=== PATIENT | male | born 1970 | race Caucasian/White ===

== ENCOUNTER 2025-07-23 15:01 | Emergency (ER) | payer BC, SELFPAY ==
--- NOTE | ~2025-07-23 | XR_ITS ---
EXAMINATION: XR chest 2V, 07/23/2025 15:15 CDT HISTORY: rib cage pain s/p fall COMPARISON: No comparisons available. Technique: 2 views obtained. Findings: The lungs are clear, no effusion. No pneumothorax. Heart is normal size. Mediastinal and hilar contours are within normal limits. Bony thorax no acute abnormality. Impression: No acute cardiopulmonary abnormality. Reviewed, dictated and finalized at location P. Impression: No acute cardiopulmonary abnormality.
[2025-07-23 15:05] VITALS: BP 160/113; PULSE 80; RESP 16; TEMP 36.8; O2SAT 98
--- OUTSIDE RECORDS SUMMARY | 2025-07-23 15:06 | XMS_ITS | Encounter Summary ---
Author Organization [facility] Address [address] [place] [address] Care Team Providers Care Ultrasound Specialist Name Role Phone Tony Stratton KARLA Unavailable [phone] Dinorah Hernandez RN Unavailable [phone] Encounter Details Date Type Department Care Team (Late st Contact Info) Description 08/11/2022 Telephone [facility] [address] [place] [phone] Deysi Black, [facility] [place] Social History Tobacco Use Types Packs/Day Years Used Date Smoking Tobacco: Never Assessed AUDIT-C Answer Date Recorded Q1: How often do you have a drink containing alc ohol? Never 08/10/2022 Q2: How many drinks containi ng alcohol do you have on a typical day when you are drinking? Patient declined 08/10/2022 Q3: How often do you have si x or more drinks on one occasion? Patient declined 08/10/2022 Sex and Gender Information Value Date Recorded Sex Assigned at Not on file Legal Sex Male 8:58 AM CDT Gender Identity Not on file Sexual Orientation Not on file documented as of this encounter Functional Status * Is person deaf or have serious hearing difficulty? Answer Date of Assessment Author No 08/10/2022 3:20 PM CDT Anatoly Peters RN * Is person blind or have serious difficulty seeing? Answer Date of Assessment Author No 08/10/2022 3:20 PM CDT Anatoly Peters RN * Does person have serious difficulty walking/climbing stairs? Answer Date of Assessment Author No 08/10/2022 3:20 PM CDT Anatoly Peters RN * Does person have difficulty dressing/bathing? Answer Date of Assessment Author No 08/10/2022 3:20 PM CDT Anatoly Peters RN * Does person have difficulty doing errands alone? Answer Date of Assessment Author No 08/10/2022 3:20 PM CDT Anatoly Peters RN documented as of this encounter Mental Status * Does person have difficulty concentrating/remembering/making decisions? Answer Entry Date Author No 08/10/2022 3:20 PM CDT Anatoly Peters RN documented in this encounter Plan of Treatment Not on file documented as of this encounter Visit Diagnoses Not on filedocumented in this encounter Care Teams Ultrasound Specialist Relationship Specialty Start Date End Date Tony Stratton APRN-CLINICAL HAEMATOLOGIST [address] [place] [phone] PCP - Attributed-[employer] Medicaid [place] 08/24/20 06/21/24 Dinorah Hernandez RN Icing CoaterFuse Spooler 09/02/22 09/02/22 documented as of this encounter
--- OUTSIDE RECORDS SUMMARY | 2025-07-23 15:06 | XMS_ITS | Clinical Summary ---
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 Sex and Gender Information Value Date Recorded Sex Assigned at Not on file Legal Sex Male 2:36 AM TELEPHONE SOLICITOR Gender Identity Not on file Sexual Orientation Not on file Last Filed Vital Signs Vital Sign Reading Time Taken Comments Blood Pressure 127/77 12/02/2020 5:45 AM TELEPHONE SOLICITOR Pulse 66 12/02/2020 5:45 AM TELEPHONE SOLICITOR Temperature 36.6 C (97.9 F) 12/02/2020 2:41 AM TELEPHONE SOLICITOR Respiratory Rate 17 12/02/2020 5:45 AM TELEPHONE SOLICITOR Oxygen Saturation 100% 12/02/2020 5:45 AM TELEPHONE SOLICITOR Inhaled Oxygen Concentration - - Weight 72.6 kg (160 lb) 12/02/2020 2:41 AM TELEPHONE SOLICITOR Height 177.8 cm (5' 10) 12/02/2020 2:41 AM TELEPHONE SOLICITOR Body Mass Index 22.96 12/02/2020 2:41 AM TELEPHONE SOLICITOR Plan of Treatment Health Maintenance Due Date Last Done Comments Hepatitis C Virus (HCV) Screening 1968 Hepatitis B Immunization (1 of 3 - 19+ 3-dose series) 1987 Cologuard 2013 Colonoscopy 2013 Colorectal Cancer Screening 2013 Immunochemical Fecal Occult Blood 2013 Pneumococcal Immunization (5 0+ years) (1 of 1 - PCV) 2018 Zoster Immunization (1 of 2) 2018 Influenza Immunization (#1) 2025 SARS-COV-2 Immunization ( season) 2025 10/20/2021, 03/20/2021, 02/21/2021 Respiratory Syncytial Virus (RSV) Immunization (Adult) (1 - 1-dose 75+ series) 2043 DTaP/Tdap/Td Immunization Discontinued 10/24/2014 TdaP Immunization Completed 10/24/2014 Human Papillomavirus (HPV) Immunization Aged Out No longer eligible based on patient's age to complete this topic Meningococcal Immunization (ACWY) Aged Out No longer eligible based on patient's age to complete this topic Rotavirus Immunization Aged Out No lo nger eligible based on patient's age to complete this topic Insurance MEDICAID [place] Care Teams Library Clerical Assistant Relationship Specialty Start Date End Date Provider, None [place] PCP - General 12/02/20
--- OUTSIDE RECORDS SUMMARY | 2025-07-23 15:06 | XMS_ITS | Clinical Summary ---
Author Organization [facility] Address [address] [place] [address] Care Team Providers Care Skiving Machine Operator Name Role Phone Unavailable Primary Care Provider Unavailabl e Source Comments [facility],non-owned Affiliates and Associated Physician Practices is amultiple site organization consisting of ambulatory clinics and hospital sitesin [place], [place] and [place]. This disclosure is being madepursuant to the Care Everywhere program and may not contain all information available regarding this patient. Last updated 18.[facility] Allergies No known active allergies Medications * Be aware that medications may not be up to date on this document. Alwaysverify current medications with the patient. acetaminophen (Tylenol) 500 MG tablet 2 (two) tablets by Enteral Tube route 3 times daily Maximum allowable Acetaminophen amount = 4 Grams (4000 mg) / 24 hours. 2 Active aspirin (Aspirin) 81 MG chew tablet Take 1 (one) tablet by mouth once daily 2 Active albuterol-ipra tropium (Duo-Neb) 0.5-2.5 (3) MG/3ML nebulizer solution Inhale 3 mL by mouth every 6 hours as needed for Shortness of Breath or Wheezing 2 Active traZODone (Desyrel) 50 MG tablet 1 (one) tablet by Enteral Tube route at bedtime 2 Active lisinopril (Prinivil; Zestril) 10 MG tablet Take 1 (one) tablet by mouth once daily 2 Active metoprolol tartrate IR 75 MG TABS 75 mg by Enteral Tube route 2 times daily 2 Active sodium chloride, Inhalant, 7 % nebulizer solution Inhale 4 mL by mouth 2 times daily 2 Active senna (Senokot) 8.6 MG tablet 1 (one) tablet by Enteral Tube route once daily 2 Active calcium citrate (Citracal 950) 950 MG tablet 1 (one) tablet by Enteral Tube route daily with breakfast 2 Active potassium - sodium phosphates (Phos-Nak) 280-160-250 MG powder 1 (one) packet by Enteral Tube route 3 times daily with meals 2 Active tamsulosin (Flomax) 0.4 MG capsule Take 1 (one) capsule by mouth once daily At the same time every day after a meal. 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 (F LUZONE; FLULAVAL; FLUARIX; AFLURIA QUADRIVALENT; 6MO+), 0.5 ML (IIV4) 09/01/2022 MENINGOCOCCAL ACWY MENVEO 09/01/2022 Pneumococcal Pcv13 Conj 09/01/2022 TDAP (7yrs+) 10/20/2024,08/10/2022 Social History Tobacco Use Types Packs/Day Years Used Date Smoking Tobacco: Former Cigarettes Smokeless Tobacco: Never Tobacco Cessation:Counseling Given: Not Answered AUDIT-C Answer Date Recorded Q1: How often do you have a drink containing alc ohol? Never 08/10/2022 Q2: How many drinks containi ng alcohol do you have on a typical day when you are drinking? Patient declined 08/10/2022 Q3: How often do you have si x or more drinks on one occasion? Patient declined 08/10/2022 Hunger Vital Sign Answer Date Recorded Within the past 12 months, y ou worried that your food would run out before you got the money to buy more. Often true 08/16/20 Within the past 12 months, t he food you bought just didn't last and you didn't have money to get more. Often true 08/16/2022 Sex and Gender Information Value Date Recorded Sex Assigned at Not on file Legal Sex Male 8:58 AM CDT Gender Identity Not on file Sexual Orientation Not on file Last Filed Vital Signs Vital Sign Reading Time Taken Comments Blood Pressure 128/95 10/21/2024 6:26 PM LEATHER DRESSER Pulse 79 10/21/2024 6:26 PM LEATHER DRESSER Temperature 36.4 C (97.6 F) 10/21/2024 6:26 PM LEATHER DRESSER Respiratory Rate 17 10/21/2024 6:26 PM LEATHER DRESSER Oxygen Saturation 97% 10/21/2024 6:26 PM LEATHER DRESSER Inhaled Oxygen Concentration 21% 08/30/2022 7 :38 PM LEATHER DRESSER Weight 79.4 kg (175 lb) 10/21/2024 12:18 AM LEATHER DRESSER Height 177.8 cm (5' 10) 10/21/2024 12:18 AM LEATHER DRESSER Body Mass Index 25.11 10/21/2024 12:18 AM LEATHER DRESSER Plan of Treatment Health Maintenance Due Date Last Done Comments COLOGUARD (AGES 45-75) - COLON CA SCREENING 1968 COLON MONITORING 1968 COLONOSCOPY - COLON CA SCREENING 1968 CT COLONOGRAPHY - COLON CA SCREENING 1968 Colorectal Cancer Screening 1968 FIT - COLON CA SCREENING 1968 FLEX SIG - COLON CA SCREENING 1968 LIPID TESTING 1968 HIV SCREENING 1983 HEPATITIS C SCREENING 09/15/1986 HEPATITIS B VACCINE (1 of 3 - 19+ 3-dose series) 1987 ZOSTER VACCINE (1 of 2) 2018 PNEUMOCOCCAL VACCINE 50+ (2 of 2 - PCV20 or PCV21) 09/01/2023 09/01/2022 DEPRESSION SCREENING 10/24/2024 COVID-19 VACCINE (5 - season) 2025 05/27/2023, 10/20/2021, 03/20/2021, Additional history exists INFLUENZA VACCINE (#1) 2025 , 09/28/2023, 09/11/2022, Additional history exists DTAP/TDAP/TD VACCINES (3 - Td or Tdap) 10/20/2034 10/20/2024, 08/10/2022 HIB VACCINE Aged Out 09/01/2022 No longer eligi ble based on patient's age to complete this topic MENINGOCOCCAL GROUPS A/C/Y/W VACCINE Aged Out 09/01/2022 No longer eligible based on patient's age to complete this topic HPV VACCINE Aged Out No longer eligi ble based on patient's age to complete this topic MENINGOCOCCAL (Group B) VACCINE SHARED DECISION-MAKING Aged Out No longer eligible based on patient's age to complete this topic Medical Devices Implanted Type Area Carrier Packer Device Identifier Shelf Expiration Date Model / Serial / Lot Plate 2 Hl Hip Cndyl 46mm 130d Shrt Brl Implanted:Qty: 1 on 08/12/2022 by Junaid Krishnan MD at [facility] Left: Femur Synthe[employer] [facility] 02/20/2031 281.502S / / [id number] Screw 36mm Hip Cndrl Comp Dhs Dcs Ss Implanted:Qty: 1 on 08/12/2022 by Junaid Krishnan MD at [facility] Left: Fem[employer] 08/12/2022 280.990 / / Screw 4.5mm 8mm 40mm 3.5mm Slf-Tap Lg - [id number] Implanted:Qty: 1 on 08/12/2022 by Jose Luis Bain MD at [facility] Left: [employer] 08/12/2022 214.840 / 214.840 / Screw 4.5mm 8mm 42mm Cortx Slf-Tap Lg - [id number] Implanted:Qty: 1 on 08/12/2022 by Jose Luis Bain MD at [facility] Left: [employer] 08/12/2022 214.842 / 214.842 / Screw 12.7mm 8mm 2.7mm 95mm Hip Cndrl - [id number] Implanted:Qty: 1 on 08/12/2022 by Jose Luis Bain MD at [facility] Left: [employer] 08/12/2022 280.295S / 280.295 / Screw 3.5mm 44mm 2.2mm Mldir Lck Sq Drv Implanted:Qty: 1 on 08/16/2022 by Shiva Ann MD at [facility] Left: Humer[employer] 8163-35-044 / / Screw 3.5mm 54mm 2.2mm Mldir Lck Sq Drv Implanted:Qty: 1 on 08/16/2022 by Shiva Ann MD at [facility] Left: [employer] 8163-35-054 / / Screw 3.5mm 14mm T15 Slf-Tap Tip Lck Implanted:Qty: 1 on 08/16/2022 by Shiva Ann MD at [facility] Left: [employer] 1312-18-014 / / Screw 3.5mm 22mm T15 Slf-Tap Tip Lck Implanted:Qty: 1 on 08/16/2022 by Shiva Ann MD at [facility] Left: [employer] 1312-18-022 / / Screw 3.5mm 24mm T15 Slf-Tap Lck Lopro Implanted:Qty: 1 on 08/16/2022 by Shiva Ann MD at [facility] Left: [employer] [id number] / / Screw 3.5mm 18mm T15 Slf-Tap Lck Tpr Implanted:Qty: 1 on 08/16/2022 by Shiva Ann MD at [facility] Left: [employer] [id number] / / Screw 3.5mm 20mm T15 Slf-Tap Lck Tpr Implanted:Qty: 1 on 08/16/2022 by Shiva Ann MD at [facility] Left: [employer] [id number] / / Wire K 1.6mm 6in Hlf Bynt Pnt Ss Fx Implanted:Qty: 4 on 08/16/2022 by Shiva Ann MD at [facility] Left: [employer] [id number] / / Screw 3.5mm 12mm Ft Slf-Tap Hex Lopro Implanted:Qty: 1 on 08/16/2022 by Shiva Ann MD at [facility] Left: [employer] 8150-37-012 / / Screw 3.5mm 22mm Ft Hex Drv Nlckg Ashish Implanted:Qty: 1 on 08/16/2022 by Shiva Ann MD at [facility] Left: [employer] 8150-37-022 / / Screw 3.5mm 30mm Ft Slf-Tap Hex Lopro Implanted:Qty: 1 on 08/16/2022 by Shiva Ann MD at [facility] Left: [employer] 8150-37-030 / / 3.5mm Multidirect Screw 42mm Implanted:Qty: 1 on 08/16/2022 by Shiva Ann MD at [facility] Left: Humerus [id number] / / 3.5mm Multidirect Screw 60mm Implanted:Qty: 2 on 08/16/2022 by Shiva Ann MD at [facility] Left: Humerus [id number] / / Plate 9 Hl Lopro Prox Blt Tip Hum Lt Implanted:Qty: 1 on 08/16/2022 by Shiva Ann MD at [facility] Left: [employer] 1312-18-702 / / Plate 9 Hl Lopro Prox Blt Tip Implanted:Qty: 1 on 08/16/2022 by Shiva Ann MD at [facility] Left: [employer] 1312-18-302 / / Screw 3.5mm 22mm 2.2mm Mldir Lck Sq Drv Implanted:Qty: 1 on 08/16/2022 by Shiva Ann MD at [facility] Left: [employer] 8163-35-022 / / Montage Settable, Resorbable Hemostatic Bone Putty 2cc Implanted:Qty: 1 on 08/19/2022 by Shiva Ann MD at [facility] Left: [employer] OS-MON160 / OS-MON / Description:UID [id number] Montage Settable, Resorbable Hemostatic Bone Putty 2cc Implanted:Qty: 1 on 08/19/2022 by Shiva Ann MD at [facility] Left: [employer] 03/23/2024 OS-MON / OS- / Pin Fx 40mm 1.5mm Spn Poly L Lac Acd - [id number] Implanted:Qty: 2 on 08/19/2022 by Shiva Ann MD at [facility] Left: [employer]ia [employer] 10/05/2026 [id number] / [id number] / [id number] Plate 3 Hl Lck Lopro Dist Blt Tip Tib Lt Implanted:Qty: 1 on 08/19/2022 by Shiva Ann MD at [facility] Left: [employer]ia [employer] 3 / / Screw 3.5mm 70mm 2.2mm Mldir Lck Sq Drv Implanted:Qty: 1 on 08/19/2022 by Shiva Ann MD at [facility] Left: [employer] [id number] / / Screw 3.5mm 80mm 2.2mm Mldir Lck Sq Drv Implanted:Qty: 1 on 08/19/2022 by Shiva Ann MD at [facility] Left: [employer] 0 / / Screw 3.5mm 75mm T15 Lck Slf-Tap Tip Tpr Implanted:Qty: 1 on 08/19/2022 by Shiva Ann MD at [facility] Left: [employer] [id number] / / Screw 3.5mm 80mm T15 Lgr Catalina Lck Slf-Tap Implanted:Qty: 2 on 08/19/2022 by Shiva Ann MD at [facility] Left: [employer] [id number] / / 3.5mm Low Profile Non-Locking Cortical Screw 75mm Lenght Implanted:Qty: 1 on 08/19/2022 by Shiva Ann MD at [facility] Left: [employer]ia 075 / / Screw 3.5mm 46mm Ft Hex Drv Nlckg Ashish Implanted:Qty: 1 on 08/19/2022 by Shiva Ann MD at [facility] Left: [employer]ia [employer] 6 / / Explanted Type Area Carrier Packer Device Identifier Shelf Expiration Date Model / Serial / Lot Screw 4.5mm 8mm 38mm Cortx Slf-Tap Lg Explanted:Qty: 1 on 08/12/2022 by Jose Luis Bain MD at [facility] Left: Femur [employer] [facility] 08/12/2022 214.838 / / 214.838 Wire K 1.6mm 6in Hlf Bynt Pnt Ss Fx Explanted:Qty: 3 on 08/19/2022 by Shiva Ann MD at [facility] Left: [employer]ia [employer] [id number] / / Insurance [facility] MEDICAID [facility] MEDICAID * Guarantor: ELEAZAR SPAIN Account Type Relation to Patient Date of Phone Billing Address Personal/Family Advance Directives * Full Code (Latest Code Status on File) Date Activated Date Inactivated Comments 08/10/2022 11:41 AM 09/01/2022 2:11 PM
--- OUTSIDE RECORDS SUMMARY | 2025-07-23 15:26 | XMS_ITS | Clinical Summary ---
Author Organization [facility] Address [address] [place] [address] Phone Care Team Providers Care Office Engineer Name Role Phone Provider, None Primary Care [...] on file Legal Sex Male 2:36 AM REMOTE SENSING TECHNOLOGIST Gender Identity Not on file Sexual Orientation Not on file Last Filed Vital Signs Vital Sign Reading Time Taken Comments Blood Pressure 127/77 12/02/2020 5:45 AM REMOTE SENSING TECHNOLOGIST Pulse 66 12/02/2020 5:45 AM REMOTE SENSING TECHNOLOGIST Temperature 36.6 C (97.9 F) 12/02/2020 2:41 AM REMOTE SENSING TECHNOLOGIST Respiratory Rate 17 12/02/2020 5:45 AM REMOTE SENSING TECHNOLOGIST Oxygen Saturation 100% 12/02/2020 5:45 AM REMOTE SENSING TECHNOLOGIST Inhaled Oxygen Concentration - - Weight 72.6 kg (160 lb) 12/02/2020 2:41 AM REMOTE SENSING TECHNOLOGIST Height 177.8 cm (5' 10) 12/02/2020 2:41 AM REMOTE SENSING TECHNOLOGIST Body Mass Index 22.96 12/02/2020 2:41 AM REMOTE SENSING TECHNOLOGIST Plan of Treatment Health Maintenance Due Date [...] Insurance MEDICAID [place]UE [place]OSS [place] Care Teams Office Engineer Relationship Specialty Start Date End Date Provider, None ID PCP - General 12/02/20
--- OUTSIDE RECORDS SUMMARY | 2025-07-23 15:26 | XMS_ITS | Clinical Summary ---
Author Organization [facility] Address [address] [place] [address] Care Team Providers Care Dairy Technologist Name Role Phone Unavailable Primary Care Provider Unavailabl e Source Comments [facility],non-owned Affiliates and Associated Physician Practices is amultiple site organization consisting of ambulatory clinics and hospital sitesin [place], [place] and [place]. This disclosure is being madepursuant to the Care Everywhere program and may not contain all information available regarding this patient. Last updated 18.[facility] Allergies No known active allergies Medications * [...] Comments Blood Pressure 128/95 10/21/2024 6:26 PM DEVELOPMENT ASSISTANT Pulse 79 10/21/2024 6:26 PM DEVELOPMENT ASSISTANT Temperature 36.4 C (97.6 F) 10/21/2024 6:26 PM DEVELOPMENT ASSISTANT Respiratory Rate 17 10/21/2024 6:26 PM DEVELOPMENT ASSISTANT Oxygen Saturation 97% 10/21/2024 6:26 PM DEVELOPMENT ASSISTANT Inhaled Oxygen Concentration 21% 08/30/2022 7 :38 PM DEVELOPMENT ASSISTANT Weight 79.4 kg (175 lb) 10/21/2024 12:18 AM DEVELOPMENT ASSISTANT Height 177.8 cm (5' 10) 10/21/2024 12:18 AM DEVELOPMENT ASSISTANT Body Mass Index 25.11 10/21/2024 12:18 AM DEVELOPMENT ASSISTANT Plan of Treatment Health Maintenance Due Date [...] this topic Medical Devices Implanted Type Area Home Health Cna Device Identifier Shelf Expiration Date Model / Serial / Lot Plate 2 Hl Hip Cndyl 46mm 130d Shrt Brl Implanted:Qty: 1 on 08/12/2022 by Junaid Krishnan MD at [facility] Left: Femur [employer] [facility] 02/20/2031 281.502S / / [id number] Screw 36mm Hip Cndrl Comp Dhs Dcs Ss Implanted:Qty: 1 on 08/12/2022 by Junaid Krishnan MD at [facility] Left: [employer] 08/12/2022 280.990 / / Screw 4.5mm 8mm 40mm 3.5mm Slf-Tap Lg - [id number] Implanted:Qty: 1 on 08/12/2022 by Jose Luis Bain MD at [facility] Left: [employer] 08/12/2022 214.840 / 214.840 / Screw 4.5mm 8mm 42mm Cortx Slf-Tap Lg - [id number] Implanted:Qty: 1 on 08/12/2022 by Jose Luis Bain MD at [facility] Left: [employer] 08/12/2022 214.842 / 214.842 / Screw 12.7mm 8mm 2.7mm 95mm Hip Cndrl - S280.295 Implanted:Qty: 1 on 08/12/2022 by Jose Luis Bain MD at [facility] Left: [employer] 08/12/2022 280.295S / 280.295 / Screw 3.5mm 44mm 2.2mm Mldir Lck Sq Drv Implanted:Qty: 1 on 08/16/2022 by Shiva Ann MD at [facility] Left: Humerus [employer] 8163-35-044 / / Screw 3.5mm 54mm 2.2mm Mldir Lck Sq Drv Implanted:Qty: 1 on 08/16/2022 by Shiva Ann MD at [facility] Left: Humer[employer] 8163-35-054 / / Screw 3.5mm 14mm T15 Slf-Tap Tip Lck Implanted:Qty: 1 on 08/16/2022 by Shiva Ann MD at [facility] Left: Humer[employer] 1312-18-014 / / Screw 3.5mm 22mm T15 Slf-Tap Tip Lck Implanted:Qty: 1 on 08/16/2022 by Shiva Ann MD at [facility] Left: Humer[employer] 1312-18-022 / / Screw 3.5mm 24mm T15 Slf-Tap Lck Lopro Implanted:Qty: 1 on 08/16/2022 by Shiva Ann MD at [facility] Left: Humer[employer] [id number] / / Screw 3.5mm 18mm T15 Slf-Tap Lck Tpr Implanted:Qty: 1 on 08/16/2022 by Shiva Ann MD at [facility] Left: Humer[employer] [id number] / / Screw 3.5mm 20mm T15 Slf-Tap Lck Tpr Implanted:Qty: 1 on 08/16/2022 by Shiva Ann MD at [facility] Left: Humer[employer] [id number] / / Wire K 1.6mm 6in Hlf Bynt Pnt Ss Fx Implanted:Qty: 4 on 08/16/2022 by Shiva Ann MD at [facility] Left: [employer] [id number] / / Screw 3.5mm 12mm Ft Slf-Tap Hex Lopro Implanted:Qty: 1 on 08/16/2022 by Shiva Ann MD at [facility] Left: H[employer] 8150-37-012 / / Screw 3.5mm 22mm Ft Hex Drv Nlckg Ashish Implanted:Qty: 1 on 08/16/2022 by Shiva Ann MD at [facility] Left: H[employer] 8150-37-022 / / Screw 3.5mm 30mm Ft Slf-Tap Hex Lopro Implanted:Qty: 1 on 08/16/2022 by Shiva Ann MD at [facility] Left: H[employer] 8150-37-030 / / 3.5mm Multidirect Screw 42mm Implanted:Qty: 1 on 08/16/2022 by Shiva Ann MD at [facility] Left: Humerus [id number] / / 3.5mm Multidirect Screw 60mm Implanted:Qty: 2 on 08/16/2022 by Shiva Ann MD at [facility] Left: Humerus [id number] / / Plate 9 Hl Lopro Prox Blt Tip Hum Lt Implanted:Qty: 1 on 08/16/2022 by Shiva Ann MD at [facility] Left: Humer[employer] 1312-18-702 / / Plate 9 Hl Lopro Prox Blt Tip Implanted:Qty: 1 on 08/16/2022 by Shiva Ann MD at [facility] Left: Humer[employer] 1312-18-302 / / Screw 3.5mm 22mm 2.2mm Mldir Lck Sq Drv Implanted:Qty: 1 on 08/16/2022 by Shiva Ann MD at [facility] Left: [employer] 8163-35-022 / / Montage Settable, Resorbable Hemostatic Bone Putty 2cc Implanted:Qty: 1 on 08/19/2022 by Shiva Ann MD at [facility] Left: [employer]ia [employer] OS-MON160 / OS-MON / Description:UID [id number] Montage Settable, Resorbable Hemostatic Bone Putty 2cc Implanted:Qty: 1 on 08/19/2022 by Shiva Ann MD at [facility] Left: [employer] 03/23/2024 OS-MON / OS- / Pin Fx 40mm 1.5mm Spn Poly L Lac Acd - [id number] Implanted:Qty: 2 on 08/19/2022 by Shiva Ann MD at [facility] Left: [employer] 10/05/2026 [id number] / [id number] / [id number] Plate 3 Hl Lck Lopro Dist Blt Tip Tib Lt Implanted:Qty: 1 on 08/19/2022 by Shiva Ann MD at [facility] Left: [employer]ia [employer] 3 / / Screw 3.5mm 70mm 2.2mm Mldir Lck Sq Drv Implanted:Qty: 1 on 08/19/2022 by Shiva Ann MD at [facility] Left: [employer]ia [employer] [id number] / / Screw 3.5mm 80mm 2.2mm Mldir Lck Sq Drv Implanted:Qty: 1 on 08/19/2022 by Shiva Ann MD at [facility] Left: [employer] 0 / / Screw 3.5mm 75mm T15 Lck Slf-Tap Tip Tpr Implanted:Qty: 1 on 08/19/2022 by Shiva Ann MD at [facility] Left: [employer] [id number] / / Screw 3.5mm 80mm T15 Lgr Catalina Lck Slf-Tap Implanted:Qty: 2 on 08/19/2022 by Shiva Ann MD at [facility] Left: [employer] [id number] / / 3.5mm Low Profile Non-Locking Cortical Screw 75mm Lenght Implanted:Qty: 1 on 08/19/2022 by Shiva Ann MD at [facility] Left: Tibia 075 / / Screw 3.5mm 46mm Ft Hex Drv Nlckg Ashish Implanted:Qty: 1 on 08/19/2022 by Shiva Ann MD at [facility] Left: Tibia [employer] 6 / / Explanted Type Area Home Health Cna Device Identifier Shelf Expiration Date Model / Serial / Lot Screw 4.5mm 8mm 38mm Cortx Slf-Tap Lg Explanted:Qty: 1 on 08/12/2022 by Jose Luis Bain MD at [facility] Left: Fem[employer] [facility] 08/12/2022 214.838 / / 214.838 Wire K 1.6mm 6in Hlf Bynt Pnt Ss Fx Explanted:Qty: 3 on 08/19/2022 by Shiva Ann MD at [facility] Left: Tibia [employer] [id number] / / Insurance [facility] MEDICAID [facility] MEDICAID * Guarantor: ELEAZAR SPAIN Account Type Relation to Patient Date of Phone Billing Address Personal/Family Advance Directives * Full Code (Latest Code Status on File) Date Activated Date Inactivated Comments 08/10/2022 11:41 AM 09/01/2022 2:11 PM
--- OUTSIDE RECORDS SUMMARY | 2025-07-23 15:27 | XMS_ITS | Encounter Summary ---
Author Organization [facility] Address [address] [place] [address] Care Team Providers Care Gamma Ray Operator Name Role Phone Tony Stratton KARLA Unavailable [phone] Dinorah Hernandez RN Unavailable [phone] Encounter Details Date Type Department Care Team (Late st Contact Info) Description 08/11/2022 Telephone [facility]ORD[facility] [address] [place] [phone] [place] [facility] [place] History Tobacco Use Types Packs/Day Years [...] on filedocumented in this encounter Care Teams Gamma Ray Operator Relationship Specialty Start Date End Date Tony Stratton APRN-DIRECTOR INVESTOR RELATIONS [address] [place] [address] [phone] PCP - Attributed-[employer] [place] 08/24/20 06/21/24 Dinorah Hernandez RN Director Of EventsIndustrial Fabric Cutter 09/02/22 09/02/22 documented as of this encounter
--- OUTSIDE RECORDS SUMMARY | 2025-07-23 15:27 | XMS_ITS | Data Portability ---
[facility] [address] [facility] [place] [address] Care Team Providers Care Bus Aide Name Role Phone FARZANA KHAN Primary Care Provider [phone] Assessment Encounter Date Assessment Date Assessment LastModified by Organization Details LastModified Time 05/21/2024 05/21/2024 It is not really clear which of one of his four medications that he is currently taking. oajao Not available 05/21/2024 14:55:55 07/03/2024 07/03/2024 It is not really clear which of one of his four medications that he is currently taking. oajao Not available 07/03/2024 12:15:37 08/15/2024 08/15/2024 It is not really clear which of one of his four medications that he is currently taking. oajao Not available 08/15/2024 10:30:11 09/05/2024 09/05/2024 It is not really clear which of one of his four medications that he is currently taking. oajao Not available 09/05/2024 14:41:09 02/25/2025 02/25/2025 It is not really clear which of one of his four medications that he is currently taking. oajao Not available 02/25/2025 16:24:01 Plan of Treatment Reminders Order Date Submit Date Provider Last Modified By Organization Details Last Modified Time Details Appointments ANY 15 2024 10:15A M Farzana Khan MD Not available Not available Not available Lab HbA1c (hemoglob in A1c), blood 2024 05/ 025 CARLOS [facility], 2022 Aubrey Sesay, [address], [address], 02/26/2025 09:37:31 CBC w/ auto diff 2024 [facility], [address] Aubrey Sesay, [address], [place], [address], 02/26/2025 06:42:31 PSA, total, serum or plasma 2024 [facility] [place], [address]22 Aubrey Sesay, [address], [place], [address], 02/26/2025 09:37:33 Referral None recorded. Procedures None recorded. Surgeries None recorded. Imaging None recorded. Medication Orders Eliquis 2.5 mg tablet 2024 [facility] #[id number], [address], [place], [id number], 02/25/2025 16:31:11 lisinopri l 10 mg tablet 2024 025 [facility] #88237, [address], [place], [id number], 02/25/2025 16:31:14 metoprolo l tartrate 75 mg tablet 2024 025 [facility] #55908, [address], [place], [id number], 02/25/2025 16:31:13 tamsulosi n 0.4 mg capsule 2024 025 [facility] #05174, [address], [place], [id number], 02/25/2025 16:31:10 lisinopri l 10 mg tablet 2023 024 [facility] #86486, [address], [place], [id number], 09/05/2024 14:41:40 metoprolo l tartrate 75 mg tablet 2023 [facility] #25015, [address], [place], [id number], 09/05/2024 14:41:41 Eliquis 2.5 mg tablet 2023 [facility] #33604, [address], [place], [id number], 09/05/2024 14:41:41 tamsulosi n 0.4 mg capsule 2023 [facility] #94444, [address], [place], [id number], 09/05/2024 14:41:39 lisinopri l 10 mg tablet 2023 [facility] #43283, [address], [place], [id number], 08/15/2024 10:37:00 metoprolo l tartrate 75 mg tablet 2023 [facility] #73733, [address], [place], [id number], 08/15/2024 10:37:00 Eliquis 2.5 mg tablet 2023 [facility] #42126, [address], [place], [id number], 08/15/2024 10:36:59 tamsulosi n 0.4 mg capsule 2023 [facility] #17363, [address], [place], [id number], 08/15/2024 10:37:20 Eliquis 2.5 mg tablet 2023 024 [facility] #07105, [address], [place], [id number], 07/03/2024 12:18:10 lisinopri l 10 mg tablet 2023 024 [facility] #49917, [address], [place], [id number], 07/03/2024 12:18:11 metoprolo l tartrate 75 mg tablet 2023 024 [facility] #30166, [address], [place], [id number], 07/03/2024 12:18:11 tamsulosi n 0.4 mg capsule 2023 024 [facility] #66738, [address], [place], [id number], 07/03/2024 12:18:13 Eliquis 2.5 mg tablet 2023 024 [facility] #27101, [address], [place], [id number], 05/21/2024 14:43:36 metoprolo l tartrate 75 mg tablet 2023 024 [facility] #97128, [address], [place], [id number], 05/21/2024 14:43:38 lisinopri l 10 mg tablet 2023 024 [facility] #[id number] [place], [id number], 05/21/2024 14:43:37 tamsulosi n 0.4 mg capsule 2023 024 [facility] #69381, [address] [place], [id number], 05/21/2024 14:43:37 Patient TargetsNo targets recorded. Patient Instructions Encounter Date Encounter Id Patient Instructions Last Modified By Organization Details Last Modified Time 05/21/2024 [id number] Restart/Continue all the medications Follow up in 4 weeks oajao Not available 05/21/2024 14:44:24 07/03/2024 [id number] influenza (flu) vaccine: care instructions oajao Not available 07/03/2024 12:16:24 high blood pressure: care instructions oajao Not available 07/03/2024 14:06:29 learning about high blood pressure oajao Not available 07/03/2024 14:06:29 Restart/Continue medications Follow up in 3 weeks oajao Not available 07/03/2024 14:05:43 08/15/2024 [id number] Restart Tamsulosin, Metoprolol and Eliquis Continue Lisinopril Follow up in 3 weeks oajao Not available 08/15/2024 10:37:58 All his prescriptions were sent electronically and copies were printed out for him. oajao Not available 08/15/2024 11:33:17 09/05/2024 [id number] Restart Metoprol ol Follow up in 3-4 weeks oajao Not available 09/05/2024 14:47:42 02/25/2025 [id number] learning about high blood sugar oajao Not available 02/25/2025 16:32:13 learning about high white blood cell counts oajao Not available 02/25/2025 16:31:41 prostate cancer screening: care instructions oajao Not available 02/25/2025 16:31:27 prostate-specifi c antigen (PSA) test: about this test oajao Not available 02/25/2025 16:31:28 Labs Restart Eliquis, Lisinopril, Metoprolol and Tamsulosin Follow up in 3-4 weeks oajao Not available 02/25/2025 16:33:10 Reason for Referral None Reported. Results Created Date Observation Date Name Description Value Unit Range Abnormal Flag Note LastModifiedBy Organization Detail LastModifiedTime 01/18/2001/17/2025 COLOG UARD cologuard result CANCEL LED - ORDER D not applic able Not Available [facility] (Cologuard Orders Only) [address], [place], [address], 01/17/2025 11:58:21 05/04/20 24 05/04/2024 COLOG UARD cologuard result CANCEL LED - DUPLIC ATE ORDER not applic able Not Available [facility] (Cologuard Orders Only) [address], [place], [address], 05/04/2024 11:41:31 10/20/20 24 10/20/2024 Blood type and Indir ect antib rex scree n panel - Blood blood group antibody screen [presence] in serum or plasma NEG Antib rex Scree n NEG 10/20 2:23 PM [facility] Not Available Not Available 12/27/2024 06:35:20 10/20/20 24 10/20/2024 Blood type and Indir ect antib rex scree n panel - Blood ABO and Rh group [type] in blood O POS ABO Rh O POS 10/20 2:23 PM [facility] Not Available Not Available 12/27/2024 06:35:20 10/20/20 24 10/20/2024 CBC W Auto Diffe renti al panel - Blood leukocytes [#/volume] in blood by automated count 11 text: 4.0 - 10.7 x10e9/ L high WBC 11.0 (H) 4.0 - 10.7 x10E9 /L 10/20 2:26 PM [facility] Not Available Not Available 12/27/2024 06:35:20 10/20/20 24 10/20/2024 CBC W Auto Diffe renti al panel - Blood erythrocytes [#/volume] in blood by automated count 4.77 text: 4.30 - 5.80 x10e12 /L RBC Count 4.77 4.30 - 5.80 x10E1 2/L 10/20 2:26 PM EXECUTIVE ASSISTANT [facility] Not Available Not Available 12/27/2024 06:35:20 10/20/20 24 10/20/2024 CBC W Auto Diffe renti al panel - Blood hemoglobin [mass/volume ] in blood 14.5 g/dL low: 13.3g/ dLhigh : 17.5g/ dL Hemog lobin 14.5 13.3 - 17.5 g/dL 10/20 2:26 PM [facility] Not Available Not Available 12/27/2024 06:35:20 10/20/20 24 10/20/2024 CBC W Auto Diffe renti al panel - Blood hematocrit [volume fraction] of blood by automated count 43.5 % low: 38.7%h igh: 51.1% Hemat ocrit 43.5 38.7 - 51.1 % 10/20 2:26 PM [facility] Not Available Not Available 12/27/2024 06:35:20 10/20/20 24 10/20/2024 CBC W Auto Diffe renti al panel - Blood MCV [entitic volume] by automated count 91.2 fL low: 80fLhi gh: 98fL MCV 91.2 80.0 - 98.0 fL 10/20 2:26 PM [facility] Not Available Not Available 12/27/2024 06:35:20 10/20/20 24 10/20/2024 CBC W Auto Diffe renti al panel - Blood MCH [entitic mass] by automated count 30.4 pg low: 26.7pg high: 33.6pg MCH 30.4 26.7 - 33.6 pg 10/20 2:26 PM [facility] Not Available Not Available 12/27/2024 06:35:20 10/20/20 24 10/20/2024 CBC W Auto Diffe renti al panel - Blood MCHC [mass/volume ] by automated count 33.3 g/dL low: 31.7g/ dLhigh : 36.3g/ dL MCHC 33.3 31.7 - 36.3 g/dL 10/20 2:26 PM [facility]EC[facility] Not Available Not Available 12/27/2024 06:35:20 10/20/20 24 10/20/2024 CBC W Auto Diffe renti al panel - Blood erythrocyte distribution width [ratio] by automated count 14.1 % low: 11.3%h igh: 14.8% RDW-C V 14.1 11.3 - 14.8 % 10/20 2:26 PM [facility] Not Available Not Available 12/27/2024 06:35:20 10/20/20 24 10/20/2024 CBC W Auto Diffe renti al panel - Blood platelets [#/volume] in blood by automated count 305 text: 150 - 420 x10e9/ L Plate let Count 305 150 - 420 x10E9 /L 10/20 2:26 PM [facility] Not Available Not Available 12/27/2024 06:35:20 10/20/20 24 10/20/2024 CBC W Auto Diffe renti al panel - Blood platelet mean volume [entitic volume] in blood by automated count 10 fL low: 7.8fLh igh: 11.4fL MPV 10.0 7.8 - 11.4 fL 10/20 2:26 PM [facility] Not Available Not Available 12/27/2024 06:35:20 10/20/20 24 10/20/2024 CBC W Auto Diffe renti al panel - Blood interpretati on and review of laboratory results ABNORM AL Not Available Not Available 06:35:20 10/20/20 24 10/20/2024 [facility] - Serum or Plasm a urea nitrogen [mass/volume ] in serum or plasma 23 mg/dL low: 7mg/dL high: 26mg/d L BUN 23 7 - 26 mg/dL 10/20 2:12 PM EXECUTIVE ASSISTANT TO [facility] [employer] Not Available Not Available 12/27/2024 06:35:19 10/20/20 24 10/20/2024 [facility] panel - Serum or Plasm a creatinine [mass/volume ] in serum or plasma 0.83 mg/dL low: 0.71mg /dLhig h: 1.16mg /dL Creat inine 0.83 0.71 - 1.16 mg/dL 10/20 2:12 PM [facility] Not Available Not Available 12/27/2024 06:35:19 10/20/20 24 10/20/2024 [facility] panel - Serum or Plasm a sodium [moles/volum e] in serum or plasma 140 mmol/ L low: 136mmo l/Lhig h: 145mmo l/L Sodiu m 140 136 - 145 mmol/ L 10/20 2:12 PM [facility] Not Available Not Available 12/27/2024 06:35:19 10/20/20 24 10/20/2024 [facility] panel - Serum or Plasm a potassium [moles/volum e] in serum or plasma 3.8 mmol/ L low: 3.5mmo l/Lhig h: 4.5mmo l/L Potas sium 3.8 3.5 - 4.5 mmol/ L 10/20 2:12 PM [facility] Not Available Not Available 12/27/2024 06:35:19 10/20/20 24 10/20/2024 [facility] panel - Serum or Plasm a chloride [moles/volum e] in serum or plasma 105 mmol/ L low: 98mmol /Lhigh : 107mmo l/L Chlor segun 105 98 - 107 mmol/ L 10/20 2:12 PM [facility] Not Available Not Available 12/27/2024 06:35:19 10/20/20 24 10/20/2024 [facility] panel - Serum or Plasm a carbon dioxide, total [moles/volum e] in serum or plasma 26 mmol/ L low: 22mmol /Lhigh : 29mmol /L CO2 26 22 - 29 mmol/ L 10/20 2:12 PM [facility] Not Available Not Available 12/27/2024 06:35:19 10/20/20 24 10/20/2024 [facility] panel - Serum or Plasm a glucose [mass/volume ] in serum or plasma 122 mg/dL low: 70mg/d Lhigh: 99mg/d L high Gluco se 122 (H) 70 - 99 mg/dL 10/20 2:12 PM [facility] Not Available Not Available 12/27/2024 06:35:19 10/20/20 24 10/20/2024 Compr [facility] 1999 panel - Serum or Plasm a calcium [moles/volum e] in serum or plasma 8.9 mg/dL low: 8.4mg/ dLhigh : 10.2mg /dL Calci um 8.9 8.4 - 10.2 mg/dL 10/20 2:12 PM [facility] Not Available Not Available 12/27/2024 06:35:19 10/20/20 24 10/20/2024 Compr [facility] metab [facility] 2000 panel - Serum or Plasm a protein [mass/volume ] in serum or plasma 6.8 g/dL low: 6g/dLh igh: 8.3g/d L Prote in Total 6.8 6.0 - 8.3 g/dL 10/20 2:12 PM [facility] Not Available Not Available 12/27/2024 06:35:19 10/20/20 24 10/20/2024 [facility] panel - Serum or Plasm a albumin [mass/volume ] in serum or plasma by bromocresol green (bcg) dye binding method 3.9 g/dL low: 3.4g/d Lhigh: 5g/dL Album in 3.9 3.4 - 5.0 g/dL 10/20 2:12 PM [facility] Not Available Not Available 12/27/2024 06:35:19 10/20/20 24 10/20/2024 Compr [employer] [facility] An[facility] olic 2000 panel - Serum or Plasm a bilirubin.to kristel [mass/volume ] in serum or plasma 0.4 mg/dL low: 0.2mg/ dLhigh : 1.2mg/ dL Bilir ubin Total 0.4 0.2 - 1.2 mg/dL 12/28 /2024 2:12 PM [facility] Not Available Not Available 12/27/2024 06:35:19 10/20/20 24 10/20/2024 [facility] panel - Serum or Plasm a alkaline phosphatase [enzymatic activity/vol ume] in serum or plasma 91 U/L low: 40U/Lh igh: 150U/L Alkal ine Phosp hatas e 91 40 - 150 U/L 10/20 2:12 PM [facility] Not Available Not Available 12/27/2024 06:35:19 10/20/20 24 10/20/2024 [facility] panel - Serum or Plasm a alanine aminotransfe rase [enzymatic activity/vol ume] in serum or plasma by no addition of P-5'-P 22 U/L low: 5U/Lhi gh: 55U/L ALT 22 5 - 55 U/L 10/20 2:12 PM [facility] Not Available Not Available 12/27/2024 06:35:19 10/20/20 24 10/20/2024 [facility] panel - Serum or Plasm a aspartate aminotransfe rase [enzymatic activity/vol ume] in serum or plasma 31 U/L low: 5U/Lhi gh: 34U/L AST 31 5 - 34 U/L 10/20 2:12 PM [facility] Not Available Not Available 12/27/2024 06:35:19 10/20/20 24 10/20/2024 [facility] panel - Serum or Plasm a anion gap 9 low: 6high: 16 Anion Gap 9 6 - 16 10/20 2:12 PM [facility] Not Available Not Available 12/27/2024 06:35:19 10/20/20 24 10/20/2024 [facility] panel - Serum or Plasm a urea nitrogen/cre atinine [mass ratio] in serum or plasma 28 low: 7high: 23 high BUN/C reati nine Ratio 28 (H) 7 - 23 10/20 2:12 PM [facility]ECUT[facility] Not Available Not Available 12/27/2024 06:35:19 10/20/20 24 10/20/2024 [facility] panel - Serum or Plasm a osmolality calculated 295 text: 275 - 295 mOsm/k g [employer]sm[employer] lated 295 275 - 295 mOsm/ kg 10/20 2:12 PM EXECUT[facility] Not Available Not Available 12/27/2024 06:35:19 10/20/20 24 10/20/2024 [facility] panel - Serum or Plasm a albumin/glob ulin ratio 1.3 low: 1.1hig h: 2.3 Album in/Gl obuli n Ratio 1.3 1.1 - 2.3 10/20 2:12 PM [facility]EC[facility] Not Available Not Available 12/27/2024 06:35:19 10/20/20 24 10/20/2024 [facility] panel - Serum or Plasm a glomerular filtration rate/1.73 sq M.predicted [volume rate/area] in serum, plasma or blood by creatinine-b ased formula (CKD-epi 2020) text: >=90 mL/min /1.73 m2 eGFR by CKD-E PI >90 >=90 mL/mi n/1.7 3 m2 10/20 2:12 PM [facility] Not Available Not Available 12/27/2024 06:35:19 10/20/20 24 10/20/2024 [facility] panel - Serum or Plasm a interpretati on and review of laboratory results ABNORM AL Not Available Not Available 06:35:19 10/20/20 24 10/20/2024 Trung ol [Mass /volu me] in Serum or Plasm a ethanol [mass/volume ] in serum or plasma high: 10mg/d L Trung ol (mg/d L) <10 <10 mg/dL 10/20 2:12 PM EXECUT[facility] Not Available Not Available 12/27/2024 06:35:19 10/20/20 24 10/20/2024 Trung ol [Mass /volu me] in Serum or Plasm a ethanol [mass/volume ] in blood high: 0.01g/ dL Trung ol Calcu lated (g/dL ) <0.01 0 <=0.0 10 g/dL 10/20 2:12 PM EXECUT[facility]IST[facility] Not Available Not Available 12/27/2024 06:35:19 10/20/20 24 10/20/2024 Trung ol [Mass /volu me] in Serum or Plasm a Unknown Analyte ETHANO L INTERP <10: NONE DETECT ED. DEPRES ANDRES OF COMMERCIAL LOAN COORDINATOR: >100 MG/DL POTENT IALLY CRITIC AL: >250 MG/DL POTENT IALLY FATAL >400 MG/DL ETHANO L IN THE PATIEN T'S BLOOD WILL CONTRI BUTE TO THE OSMOLA R GAP. ETHANO L'S CONTRI BUTION TO THE OSMOLA R GAP CAN BE ESTIMA FINN BY DIVIDI NG THE CONCEN TRATIO N OF ETHANO L IN MG/DL BY 4.6. THIS TEST IS FOR CLINIC AL USE ONLY AND DOES NOT EQUAL A RANDALL FOR LEGAL PURPOS ES. Trung ol Inter p <10: None Detec finn. Depre ssion of COMMERCIAL LOAN COORDINATOR: >100 mg/dl Poten tiall y Criti madi: >250 mg/dl Poten tiall y Fatal >400 mg/dl Trung ol in the patie nt's blood will contr ibute to the osmol ar gap. Trung ol's contr ibuti on to the osmol ar gap can be estim ated by divid ing the michelle ntrat ion of trung ol in mg/dL by 4.6. This test is for clini madi use only and does not equal a RANDALL for legal purpo ses. Not Available Not Available 12/27/2024 06:35:19 10/20/20 24 10/20/2024 Trung ol [Mass /volu me] in Serum or Plasm a interpretati on and review of laboratory results NORMAL Not Available Not Available 03/2025 06:35:19 02/26/20 25 02/26/2025 CBC WITH DIFFE RENTI AL/PL ATELE T WBC 10.0 x10e3 /uL 3.4-10 .8 Not Available [facility] ([facility]) [address] [facility], [place], [address], 02/26/2025 06:42:31 02/26/2002/26/2025 CBC WITH DIFFE RENTI AL/PL ATELE T RBC 5.31 x10e6 /uL 4.14-5 .80 Not Available [facility] ([facility]) [address] [facility], [place], [address], 02/26/2025 06:42:31 02/26/2002/26/2025 CBC WITH DIFFE RENTI AL/PL ATELE T hemoglobin 15.4 g/dL 13.0-1 7.7 Not Available [facility] ([facility]) [address] [facility], [place], [address], 02/26/2025 06:42:31 02/26/2002/26/2025 CBC WITH DIFFE RENTI AL/PL ATELE T hematocrit 47.5 % 37.5-5 1.0 Not Available [facility] ([facility]) [address] [place], [address], 02/26/2025 06:42:31 02/26/2002/26/2025 CBC WITH DIFFE RENTI AL/PL ATELE T MCV 90 fL 79-97 Not Available [facility] ([facility]) [address] [place], [address], 02/26/2025 06:42:31 02/26/2002/26/2025 CBC WITH DIFFE RENTI AL/PL ATELE T MCH 29.0 pg 26.6-3 3.0 Not Available [facility] ([facility]) [address] [place], [address], 02/26/2025 06:42:31 02/26/2002/26/2025 CBC WITH DIFFE RENTI AL/PL ATELE T MCHC 32.4 g/dL 31.5-3 5.7 Not Available [facility] ([facility]) [address] [facility], [place], [address], 02/26/2025 06:42:31 02/26/2002/26/2025 CBC WITH DIFFE RENTI AL/PL ATELE T RDW 13.2 % 11.6-1 5.4 Not Available [facility] ([facility]) [address] [facility], [place], [address], 02/26/2025 06:42:31 02/26/2002/26/2025 CBC WITH DIFFE RENTI AL/PL ATELE T platelets 374 x10e3 /uL 150-45 0 Not Available [facility] ([facility]) [address] [facility], [place], [address], 02/26/2025 06:42:31 02/26/2002/26/2025 CBC WITH DIFFE RENTI AL/PL ATELE T neutrophils 59 % notest ab. Not Available [facility] ([facility]) [address] [facility], [place], [address], 02/26/2025 06:42:31 02/26/2002/26/2025 CBC WITH DIFFE RENTI AL/PL ATELE T lymphs 26 % notest ab. Not Available [facility] ([facility]) [address] [facility], [place], [address], 02/26/2025 06:42:31 02/26/2002/26/2025 CBC WITH DIFFE RENTI AL/PL ATELE T monocytes 9 % notest ab. Not Available [facility] ([facility]) [address] [facility], [place], [address], 02/26/2025 06:42:31 02/26/2002/26/2025 CBC WITH DIFFE RENTI AL/PL ATELE T eos 5 % notest ab. Not Available [facility] ([facility]) [address] [facility], [place], [address], 02/26/2025 06:42:31 02/26/2002/26/2025 CBC WITH DIFFE RENTI AL/PL ATELE T basos 1 % notest ab. Not Available [facility] ([facility]) [address] [facility], [place], [address], 02/26/2025 06:42:31 02/26/2002/26/2025 CBC WITH DIFFE RENTI AL/PL ATELE T neutrophils (absolute) 5.9 x10e3 /uL 1.4-7. 0 Not Available [facility] ([facility]) [address] [facility], [place], [address], 02/26/2025 06:42:31 02/26/2002/26/2025 CBC WITH DIFFE RENTI AL/PL ATELE T lymphs (absolute) 2.6 x10e3 /uL 0.7-3. 1 Not Available [facility] ([facility]) [address] [facility], [place], [address], 02/26/2025 06:42:31 02/26/2002/26/2025 CBC WITH DIFFE RENTI AL/PL ATELE T monocytes(ab solute) 0.9 x10e3 /uL 0.1-0. 9 Not Available [facility] ([facility]) [address] [place], [address], 02/26/2025 06:42:31 02/26/2002/26/2025 CBC WITH DIFFE RENTI AL/PL ATELE T eos (absolute) 0.5 x10e3 /uL 0.0-0. 4 above high normal Not Available [facility] ([facility]) [address] [place], [address], 02/26/2025 06:42:31 02/26/20 25 02/26/2025 CBC WITH DIFFE RENTI AL/PL ATELE T baso (absolute) 0.1 x10e3 /uL 0.0-0. 2 Not Available [facility] ([facility]) [address] [place], [address], 02/26/2025 06:42:31 02/26/2002/26/2025 CBC WITH DIFFE RENTI AL/PL ATELE T immature granulocytes 0 % notest ab. Not Available [facility] ([facility]) [address] [place], [address], 02/26/2025 06:42:31 02/26/2002/26/2025 CBC WITH DIFFE RENTI AL/PL ATELE T immature grans (abs) 0.0 x10e3 /uL 0.0-0. 1 Not Available [facility] ([facility]) [address] [place], [address], 02/26/2025 06:42:31 02/26/2002/26/2025 HEMOG LOBIN A1C hemoglobin A1C 5.7 % 4.8-5. 6 above high normal Predi abete s: 5.7 - 6.4 Diabe isabell: >6.4 Glyce hannah contr ol for adult s with diabe isabell: <7.0 Not Available [facility] ([facility]) [address] [place], [address], 02/26/2025 09:37:31 02/26/2002/26/2025 PROST ATE-S PECIF IC AG prostate specific Ag 0.5 NG/mL 0.0-4. 0 Jose Roberto ECLIA metho dolog y. Accor ding to the [employer] n, Serum PSA shoul d decre ase and remai n at undet ectab le level s after radic al prost atect miya. The AUA defin es bioch emica l recur rence as an initi al PSA value 0.2 ng/mL or great er follo wed by a subse quent confi rmato ry PSA value 0.2 ng/mL or great er. Value s obtai allan with diffe rent assay metho ds or kits canno t be used inter davis alannah . Resul ts canno t be inter prete d as absol [place] ev[facility] nce of the prese nce or absen ce of matti corado . Not Available [facility] ([facility]) [address] [facility] [address], [place], [address], 02/26/2025 09:37:32 07/19/2007/19/2025 magne sium, serum or plasm a magnesium, serum or plasma 2.1 mg/dL low: 1.6mg/ dLhigh : 2.3mg/ dL normal Not Available Not Available 07/20/2025 00:21:18 07/19/2007/19/2025 CMP, serum or plasm a sodium, blood 141 mmol/ L low: 137mmo l/Lhig h: 145mmo l/L normal Not Available Not Available 07/20/2025 00:21:17 07/19/2007/19/2025 CMP, serum or plasm a potassium, serum or plasma 4.2 mmol/ L low: 3.5mmo l/Lhig h: 5.1mmo l/L normal Not Available Not Available 07/20/2025 00:21:17 07/19/2007/19/2025 CMP, serum or plasm a chloride, serum or plasma 108 mmol/ L low: 98mmol /Lhigh : 107mmo l/L high Not Available Not Available 07/20/2025 00:21:17 07/19/2007/19/2025 CMP, serum or plasm a CO2, (carbon dioxide), total, serum or plasma 28 mmol/ L low: 22mmol /Lhigh : 30mmol /L normal Not Available Not Available 07/20/2025 00:21:17 07/19/2007/19/2025 CMP, serum or plasm a anion gap, serum or plasma 9.2 mmol/ L low: 14mmol /Lhigh : 22mmol /L low Not Available Not Available 07/20/2025 00:21:17 07/19/2007/19/2025 CMP, serum or plasm a glucose, qn [mass/volume ], serum or plasma 106 mg/dL low: 70mg/d Lhigh: 99mg/d L high Not Available Not Available 07/20/2025 00:21:17 07/19/2007/19/2025 CMP, serum or plasm a urea nitrogen [mass or moles/volume ] in serum or plasma 19 mg/dL low: 8mg/dL high: 19mg/d L normal Not Available Not Available 07/20/2025 00:21:17 07/19/2007/19/2025 CMP, serum or plasm a creatinine, serum or plasma 0.77 mg/dL low: 0.66mg /dLhig h: 1.25mg /dL normal Not Available Not Available 07/20/2025 00:21:17 07/19/2007/19/2025 CMP, serum or plasm a GFR, estimated (eGFR), serum >60 normal Not Available Not Available 06/25 00:21:17 07/19/2007/19/2025 CMP, serum or plasm a alkaline phosphatase, serum or plasma 91 U/L low: 38U/Lh igh: 126U/L normal Not Available Not Available 07/20/2025 00:21:17 07/19/2007/19/2025 CMP, serum or plasm a ALT (alanine aminotransfe rase), serum or plasma 24 U/L low: 0U/Lhi gh: 50U/L normal Not Available Not Available 07/20/2025 00:21:17 07/19/2007/19/2025 CMP, serum or plasm a AST/SGOT (aspartate aminotransfe rase), serum or plasma 33 U/L low: 15U/Lh igh: 46U/L normal Not Available Not Available 07/20/2025 00:21:17 07/19/2007/19/2025 CMP, serum or plasm a bilirubin, total, serum or plasma 0.6 mg/dL low: 0.2mg/ dLhigh : 1.3mg/ dL normal Not Available Not Available 07/20/2025 00:21:17 07/19/2007/19/2025 CMP, serum or plasm a calcium, serum or plasma 9.8 mg/dL low: 8.4mg/ dLhigh : 10.2mg /dL normal Not Available Not Available 07/20/2025 00:21:17 07/19/2007/19/2025 CMP, serum or plasm a protein, total, serum 7.6 g/dL low: 6.3g/d Lhigh: 8.2g/d L normal Not Available Not Available 07/20/2025 00:21:17 07/19/2007/19/2025 CMP, serum or plasm a albumin, serum or plasma 4.4 g/dL low: 3.4g/d Lhigh: 5g/dL normal Not Available Not Available 07/20/2025 00:21:17 07/19/2007/19/2025 CMP, serum or plasm a globulins, total, serum 3.2 g/dL low: 2.6g/d Lhigh: 4.2g/d L normal Not Available Not Available 07/20/2025 00:21:17 07/19/2007/19/2025 CMP, serum or plasm a albumin/glob ulin, ratio, serum 1.4 ratio low: 1ratio high: 2ratio normal Not Available Not Available 07/20/2025 00:21:17 07/19/2007/19/2025 CBC w/ auto diff WBC, auto, blood 11.3 x10'3 /uL low: 4.2x10 '3/uLh igh: 10.8x1 0'3/uL high Not Available Not Available 07/20/2025 00:21:17 07/19/2007/19/2025 CBC w/ auto diff RBC count, blood 4.82 x10'6 /uL low: 4.1x10 '6/uLh igh: 5.8x10 '6/uL normal Not Available Not Available 07/20/2025 00:21:17 07/19/2007/19/2025 CBC w/ auto diff hemoglobin (Hb), blood 15.2 g/dL low: 13.2g/ dLhigh : 17g/dL normal Not Available Not Available 07/20/2025 00:21:17 07/19/2007/19/2025 CBC w/ auto diff hematocrit, automated count, blood 46.3 % low: 39.3%h igh: 50% normal Not Available Not Available 07/20/2025 00:21:17 07/19/2007/19/2025 CBC w/ auto diff MCV, blood 96.1 fL low: 80fLhi gh: 97fL normal Not Available Not Available 07/20/2025 00:21:17 07/19/2007/19/2025 CBC w/ auto diff MCH, qn, automated (obs) 31.5 pg low: 27pghi gh: 33pg normal Not Available Not Available 07/20/2025 00:21:17 07/19/2007/19/2025 CBC w/ auto diff MCHC, qn, automated (obs) 32.8 g/dL low: 31g/dL high: 36g/dL normal Not Available Not Available 07/20/2025 00:21:17 07/19/2007/19/2025 CBC w/ auto diff erythrocyte distribution width, ratio (obs) 15.2 % low: 11.8%h igh: 15.5% normal Not Available Not Available 07/20/2025 00:21:17 07/19/2007/19/2025 CBC w/ auto diff platelets, auto, blood 335 x10'3 /uL low: 150x10 '3/uLh igh: 400x10 '3/uL normal Not Available Not Available 07/20/2025 00:21:17 07/19/2007/19/2025 CBC w/ auto diff platelet mean volume, qn, automated, blood (obs) 9.9 fL low: 9fLhig h: 12.4fL normal Not Available Not Available 07/20/2025 00:21:17 07/19/2007/19/2025 CBC w/ auto diff neutrophils/ 100 leukocytes, blood (obs) 68.6 % low: 39%hig h: 72% normal Not Available Not Available 07/20/2025 00:21:17 07/19/20 25 07/19/2025 CBC w/ auto diff lymphocytes/ 100 leukocytes, blood (obs) 16.2 % low: 16%hig h: 47% normal Not Available Not Available 07/20/2025 00:21:17 07/19/20 25 07/19/2025 CBC w/ auto diff monocytes/10 0 leukocytes, blood (obs) 11.4 % low: 5%high : 12% normal Not Available Not Available 07/20/2025 00:21:17 07/19/2007/19/2025 CBC w/ auto diff eosinophils, quant, blood 2.3 % low: 1%high : 7% normal Not Available Not Available 07/20/2025 00:21:17 07/19/2007/19/2025 CBC w/ auto diff basophils/10 0 leukocytes, blood (obs) 1.1 % low: 0%high : 2% normal Not Available Not Available 07/20/2025 00:21:17 07/19/2007/19/2025 CBC w/ auto diff immature granulocytes /100 leukocytes, blood (obs) 0.4 % low: 0%high : 0.5% normal Not Available Not Available 07/20/2025 00:21:17 07/19/2007/19/2025 CBC w/ auto diff neutrophils, count, blood (obs) 7.77 x10'3 /uL low: 1.5x10 '3/uLh igh: 8x10'3 /uL normal Not Available Not Available 07/20/2025 00:21:17 07/19/20 25 07/19/2025 CBC w/ auto diff lymphocytes, blood (obs) 1.83 x10'3 /uL low: 1.07x1 0'3/uL high: 3.43x1 0'3/uL normal Not Available Not Available 07/20/2025 00:21:17 07/19/2007/19/2025 CBC w/ auto diff monocytes, count, blood (obs) 1.29 x10'3 /uL low: 0.29x1 0'3/uL high: 0.99x1 0'3/uL high Not Available Not Available 07/20/2025 00:21:17 07/19/2007/19/2025 CBC w/ auto diff eosinophils, quant, blood 0.26 x10'3 /uL low: 0.02x1 0'3/uL high: 0.53x1 0'3/uL normal Not Available Not Available 07/20/2025 00:21:17 07/19/20 25 07/19/2025 CBC w/ auto diff basophils, count, blood (obs) 0.13 x10'3 /uL low: 0.01x1 0'3/uL high: 0.08x1 0'3/uL high Not Available Not Available 07/20/2025 00:21:17 07/19/2007/19/2025 CBC w/ auto diff immature granulocytes count, blood 0.05 x10'3 /uL low: 0x10'3 /uLhig h: 0.05x1 0'3/uL normal Not Available Not Available 07/20/2025 00:21:17 07/19/2007/19/2025 CBC w/ auto diff nucleated erythrocytes /100 leukocytes, ratio, blood (obs) 0 % high: 0% normal Not Available Not Available 07/20/2025 00:21:17 07/19/2007/19/2025 CBC w/ auto diff nucleated erythrocytes , count, automated, blood 0 x10'3 /uL normal Not Available Not Available 07/20/20 00:21:17 Result Notes None recorded. Problems Name Problem SNOMED Code Status Onset Date Resolution Date Notes Provider Name and Address Organization Details Recorded Time Low back pain 624460137 Active Farzana Khan MD Attn: Najma goodwin,[address] [place], [address], [place] - [facility] 3 10:05:51 Contusion of left hand 3741476184022 9109 Active Farzana Khan MD Attn: Najma goodwin,[address] [place], [address], [place] [facility] 3 10:05:01 Abrasion of skin of left index finger 7036632262956 9107 Active Farzana Khan MD Attn: Najma goodwin,[address] [place], [address], [place] - [facility] 3 10:05:01 Abrasion of skin of left middle finger 8016174908167 9104 Active Farzana Khan MD Attn: Najma goodwin,[address] [place], [address], [place] [facility] 3 10:05:01 Disorder of nail 14202169 Active Farzana Khan MD Attn: Najma goodwin,[address] [place], [address], [place] [facility] 3 10:05:01 Pneumonia 986071126 Active Farzana Khan MD Attn: Najma goodwin,[address] [facility], [place], [address], [place] [facility] 4 16:42:37 Fracture of multiple ribs 2574551 Active Farzana Khan MD Attn: Efrainanil goodwin,[address] [facility], [place], [address], [place] [facility] 5 16:19:58 Chronic obstructive pulmonary disease 26089960 Active 2022 Farzana Khan MD Attn: Efrainanil goodwin,[address] [facility], [place], [address], [place] [facility] 3 10:05:51 Benign essential hypertensio n 3406884 Active 2022 Farzana Khan MD Attn: Efrainanil goodwin,[address] [facility], [place], [address], [place] [facility] 3 10:05:50 Benign prostatic hyperplasia 732206508 Active 2024 Farzana Khan MD Attn: Najma buddy,[address] [facility], [place], [address], [place] [facility] 5 16:24:45 Notes:Some problems listed i n Documents: #[id number], #[id number], #[id number], #[id number], #[id number] could not be added to this patient's chart. Please review these documents and add these problems to the patient's chart manually as needed. Problem Notes None recorded. Procedures Surgical History Date Name Laterality Status Provider Name and Address Organization Details Recorded Time 3 Knee Surgery completed Farzana Khan MD Attn: [address]ing,[address] [place], [address], [place] [facility] 11/25/2017 14:30:27 9 Unlisted procedure shoulder completed Farzana Khan MD Attn: [address] [facility], [place], [address], [facility] 11/25/2017 14:31:01 Knee Surgery completed Sarah Whitehead MA [facility] 02/10/2023 09:33:35 repair of elbow completed Sarah Whitehead MA [facility] 02/10/2023 09:34:15 operation on hip joint completed Sarah Whitehead MA [facility] 02/10/2023 09:34:38 Imaging Results None recorded. Procedure Notes None recorded. Medical Equipment None Reported. Allergies Allergen ID Allergen Name Allergen Category Reaction Reaction Severity Criticality Documentation Date Start Date Code Code System Note Provider Name and Address Organization Details Recorded Time 442185 No known allergy (situatio n) Not available Not available Not available Not available 02/10/2023 92628 6003 SNOMED Farzana Khan MD Attn: Accountin g,[address] [facility], [place], [address], [facility] 09:41:22 No known drug allergies Medications Name Sig Start Date Stop Date Status Note LastModified by Organization Details LastModified Time Mapap Extra Strength 500 mg tablet Take 2 tablets every 8 hours by oral route as needed for 10 days. 02/10 completed Not Available Not Available Not Available ipratropi um 0.5 mg-albute rol 3 mg (2.5 mg base)/3 mL nebulizat ion soln USE 3 ML VIA NEBULIZE R FOUR TIMES DAILY NEEDED 01/17 completed Refused Not Available Not Available Not Available clindamyc in HCl 300 mg capsule 11/25 completed Not Available Not Available Not Available trazodone 50 mg tablet 02/10 completed Not Available Not Available Not Available azithromy federico 250 mg tablet 02/10 completed Not Available Not Available Not Available hydrocodo ne 5 mg-acetam inophen 325 mg tablet TAKE 1 TABLET BY MOUTH EVERY 6 HOURS NEEDED 02/10 completed Not Available Not Available Not Available ondansetr on HCl 4 mg tablet TAKE 1 TABLET BY MOUTH EVERY 8 HOURS 02/10 completed Not Available Not Available Not Available prednison e 20 mg tablet TAKE 3 TABLETS BY MOUTH EVERY DAY FOR 5 DAYS 02/10 completed Not Available Not Available Not Available naproxen 250 mg tablet 250 mg by oral route. 10/31 completed Not Available Not Available Not Available sulfameth oxazole 800 mg-trimet hoprim 160 mg tablet TAKE 1 TABLET BY MOUTH EVERY 12 HOURS AROUND THE CLOCK FOR 3 DAYS 06/29 completed Not Available Not Available Not Available tramadol 50 mg tablet TAKE 1 TABLET BY MOUTH EVERY 6 HOURS NEEDED *NOT CONTRACT ED* 02/10 completed Not Available Not Available Not Available ketorolac 30 mg/mL (1 mL) injection solution 30 mg by injectio n route. 10/25 completed Not Available Not Available Not Available famotidin e 20 mg tablet 02/10 completed Not Available Not Available Not Available tamsulosi n 0.4 mg capsule TAKE 1 CAPSULE BY MOUTH EVERY DAY AT BEDTIME FOR ENLARGED PROSTATE active Not Available Not Available No t Available amlodipin e 10 mg tablet TAKE 1 TABLET BY MOUTH EVERY DAY 02/10 completed Not Available Not Available Not Available benzonata te 100 mg capsule TAKE 1 CAPSULE BY MOUTH EVERY 8 HOURS NEEDED FOR COUGH AND CONGESTI ON 02/10 completed Not Available Not Available Not Available cephalexi n 500 mg capsule TAKE 1 CAPSULE BY MOUTH THREE TIMES DAILY FOR 10 DAYS 09/28 completed Not Available Not Available Not Available lisinopri l 10 mg tablet TAKE 1 TABLET BY MOUTH EVERY DAY DIRECTED FOR HYPERTEN ANDRES active Not Available Not Available No t Available hydrochlo rothiazid e 25 mg tablet Take 1 tablet every day by oral route as directed for 90 days. 02/10 completed Not Available Not Available Not Available doxycycli ne hyclate 100 mg tablet TAKE 1 TABLET BY MOUTH TWICE DAILY FOR 10 DAYS 05/21 completed Not Available Not Available Not Available dicyclomi ne 10 mg capsule TAKE ONE CAPSULE BY MOUTH THREE TIMES DAILY 02/10 completed Not Available Not Available Not Available naproxen 500 mg tablet TAKE 1 TABLET BY MOUTH TWICE DAILY 02/10 completed Not Available Not Available Not Available bacitraci n zinc 500 unit/gram topical ointment in packet 1 pavithra by topical route. 10/31 completed Not Available Not Available Not Available Advil 03/23 completed Not Available Not Available Not Available Eliquis 2.5 mg tablet TAKE 1 TABLET BY MOUTH TWICE DAILY DIRECTED FOR ATRIAL FIBRILLA TION active Not Available Not Available No t Available Incruse Ellipta 62.5 mcg/actua tion powder for inhalatio n INHALE 1 PUFF BY MOUTH EVERY DAY DIRECTED 01/17 completed I don't want to have one Not Available Not Available Not Available metoprolo l tartrate 75 mg tablet TAKE 1 TABLET BY MOUTH TWICE DAILY DIRECTED FOR HYPERTEN ANDRES active Not Available Not Available No t Available Vitals Date Recorded Body height Body mass index (BMI) Body weight Oxygen saturation Oxygen saturation in Arterial blood by Pulse oximetry Respiratory rate Heart rate Body temperature Systolic And Diastolic Provider Name and Address Organization Details Last Updated DateTime 5 179.07 cm 22 kg/m2 10397.9 7 g 97 % 97 % 20 /min 84 /min 98.9 [degF] 160/104 mm[Hg] Rosalinda Alexander MA [facility] 5 16:21:48 Date Recorded Body height Body mass index (BMI) Body weight Heart rate Oxygen saturation Oxygen saturation in Arterial blood by Pulse oximetry Respiratory rate Systolic And Diastolic Provider Name and Address Organization Details Last Updated DateTime 4 179.07 cm 22.5 kg/m2 27381.1 9 g 64 /min 99 % 99 % 16 /min 136/94 mm[Hg] Rosalinda Alexander MA [facility] 4 14:34:52 Date Recorded Body height Body mass index (BMI) Body weight Heart rate Oxygen saturation Oxygen saturation in Arterial blood by Pulse oximetry Respiratory rate Systolic And Diastolic Provider Name and Address Organization Details Last Updated DateTime 4 179.07 cm 23.2 kg/m2 16277.8 7 g 74 /min 98 % 98 % 14 /min 126/90 mm[Hg] Rosalinda Alexander MA [facility] 4 11:40:23 Date Recorded Body height Body mass index (BMI) Body weight Heart rate Oxygen saturation Oxygen saturation in Arterial blood by Pulse oximetry Respiratory rate Systolic And Diastolic Provider Name and Address Organization Details Last Updated DateTime 4 179.07 cm 23 kg/m2 76235.4 g 62 /min 99 % 99 % 16 /min 150/86 mm[Hg] Rosalinda Alexander MA [place] [facility] 4 10:25:43 Date Recorded Body height Body mass index (BMI) Body weight Respiratory rate Heart rate Oxygen saturation Oxygen saturation in Arterial blood by Pulse oximetry Systolic And Diastolic Provider Name and Address Organization Details Last Updated DateTime 4 179.07 cm 24 kg/m2 25737.7 g 18 /min 60 /min 98 % 98 % 150/90 mm[Hg] Rosalinda Alexander MA [place] - [facility] 4 14:22:45 Social History Question Answer Notes LastModified by [employer] ion Details LastModified Time Tobacco Smoking Status Current Every Day Smoker Rosalinda Alexander MA [facility] 11/25/2017 14:17:58 What Is Your Level Of Caffeine Consumption? Heavy Information not available 02/10/2023 Which Illicit Or Recreational Drugs Have You Used? None Information not available 11/25/2017 What Was The Date Of Your Most Recent Tobacco Screening? 02/25/2025 Information not available 02/25/2025 What Is Your Current Pack Years? [id number] rs Information not available 02/10/2023 Do You Have Smoke And Carbon Monoxide Detectors In Your Home? Yes Information not available 02/10/2023 At What Age Did You Start Smoking Tobacco? 18 Information not available 02/10/2023 How Much Tobacco Do You Smoke? 0.25 PPD Information not available 02/10/2023 Has Tobacco Cessation Counseling Been Provided? Yes Information not available 02/10/2023 On What Date Was Tobacco Cessation Counseling Provided? 02/25/2025 Information not available 02/25/2025 How Many Years Have You Smoked Tobacco? 25 Information not available 01/18/2024 Sex: Unknown Functional Status Question Answer Note LastModified by [employer] ion Details LastModified Time Do you use any illicit or recreational drugs? No Information not available 02/10/2023 Do you or have you ever used any other forms of tobacco or nicotine? No Information not available 02/10/2023 What is your level of alcohol consumption? None Information not available 11/25/2017 What is your occupation? Retired Information not available 11/25/2017 Mental Status None recorded. Family History Nothing Reported. Medical History Condition Response Coronary Artery Disease N Other N High Blood Pressure Y Atrial Fibrillation Y Kidney or Bladder Problems N Thyroid Problems N GI Problems N Depression N COPD N Blood Clots N Skin Problems N Anemia N Heart Attack (NE) N Anxiety Disorder N Diabetes N Muscle, Joint, or Bone Problems N Seizures/Epilepsy N Acid Reflux (GERD) N Cancer N Stroke N Asthma N Allergies N High Cholesterol N Hepatitis N Liver Disease N Headaches N Heart Failure N Osteoporosis N Immunizations Vaccine Type Date Status Note Provider Nam e and Address Organization Details Recorded Time COVID-19, mRNA, LNP-S, PF, 100 mcg/0.5mL dose or 50 mcg/0.25mL dose 1 completed Not Available [facility] 09/20/2023 01:38:06 COVID-19, mRNA, LNP-S, PF, 100 mcg/0.5mL dose or 50 mcg/0.25mL dose 1 completed Not Available [facility] 09/20/2023 01:38:07 COVID-19, mRNA, LNP-S, PF, 100 mcg/0.5mL dose or 50 mcg/0.25mL dose 1 completed Not Available [facility] 09/20/2023 01:38:07 influenza nasal, unspecified formulation 2 completed Not Available [facility] 09/20/2023 01:38:07 Meningococcal C/Y-HIB PRP 1 completed Not Available [facility] 09/20/2023 01:38:07 Meningococcal MCV4O 2 completed Not Available [facility] 09/20/2023 01:38:07 Pneumococcal conjugate PCV 13 2 completed Not Available [facility] 09/20/2023 01:38:07 Tdap 2 completed Not Available [facility] 09/20/2023 01:38:07 zoster recombinant 3 completed BRANT Alvarez, [place] - [facility] 09/28/2023 10:21:00 COVID-19, mRNA, LNP-S, bivalent, PF, 50 mcg/0.5 mL or 25mcg/0.25 mL dose 3 completed Rosalinda Alexander [place], [place] [facility] 09/28/2023 10:21:00 Influenza, split virus, quadrivalent, PF 3 completed Farzana Khan MD Attn: [address] [place], [address], [facility] 09/28/2023 14:14:19 Influenza, split virus, trivalent, PF 4 completed Farzana Khan MD Attn: Accounting[address] [place], [address], [facility] 07/03/2024 14:03:30 Tdap 5 completed [facility] 01:38:07 Past Encounters Encounter ID Performer Location Encounter Start Date Encounter Closed Date Diagnosis/Indication Diagnosis SNOMED-CT Code Diagnosis ICD10 Code Diagnosis IMO Codes Diagnosis Note [id number] Farzana Khan MD [facility] (Adult Med) [address] [place] [id number] 11/25/2017 13:59:28 11/25/2017 14:59:57 Adult health examination 843947779 Z00.00 Immunization refused 275 258296 Z28.20 Knee pain 76366015 M25.5 61 Pain of sh oulder region 21455971 M25.511 Nicotine dependence 5629 4008 F17.200 Cessation was discussed Benign ess ential hypertension 8770501 I10 Detailed discussion Low salt dietStart HCTZ Screening for malignant neoplasm of prostate 126239768 Z12.5 [id number] Farzana Khan MD [facility] (Adult Med) [address] [place] [id number] 02/10/2023 08:38:25 02/11/2023 13:27:31 General examination of patient 371169488 Z00.01 Chronic ob structive pulmonary disease 28623403 J44.9 Benign ess ential hypertension 3086611 I10 Screening for malignant neoplasm of prostate 039467974 Z12.5 Benign pro static hyperplasia 063293000 N40.1 Renewal of prescription 778777512 Z76.0 It is unclear why he is on Eliquis Immunization advised 310 066507 Z71.9 Screening for malignant neoplasm of colon 020160144 Z12.11 Nicotine dependence 5629 4008 F17.200 Cessation was discussed [id number] MD Celso Grady (Adult Med) [address] [place] [phone] 03/23/2023 09:51:28 03/24/2023 13:01:18 Benign essential hypertension 4920648 I10 Anemia 556613706 D64.9 Alkaline p hosphatase above reference range 767063836 R74.8 Abnormal urinalysis 1672 53257 R82.90 [id number] MD [facility] Grady (Adult Med) [address] [place] [id number] 05/23/2023 09:36:02 05/24/2023 15:50:04 History of atrial fibrillation 045230792 Z86.79 Hx. of AFIB, AC on hold due to LGIBCardio logy Painless r ectal bleeding 105218916 K62.5 LabsGI Abnormal urinalysis 1672 60027 R82.90 Benign ess ential hypertension 7499846 I10 Benign pro static hyperplasia 831685810 N40.1 [id number] MD [facility] Grady (Adult Med) [address] [place] [phone] 06/29/2023 12:35:57 07/01/2023 06:35:33 Leukocytosis 824225617 D72.829 Possibly related to the UTI, for which he has been treated. Follow-up visit 47470592 9 Z09 Benign ess ential hypertension 8408243 I10 [id number] MD Celso Grady (Adult Med) [address] [place] [phone] 09/28/2023 10:16:29 09/29/2023 14:09:58 Administration of influenza vaccine 33794962 Z23 Follow-up visit 85867018 9 Z09 Benign ess ential hypertension 7657271 I10 Uncontroll ed Fall 4513445 W19.XXXA Chronic anemia 219391772 D64.9 Chronic ob structive pulmonary disease 26668583 J44.9 History of atrial fibrillation 206811820 Z86.79 Hx. of AFIB, on low dose AC which was previously on hold due to LGIBGI & Cardiology as referred Benign pro static hyperplasia 013516427 N40.1 [id number] Farzana Khan MD [facility] (Adult Med) [address] [place] [id number] 01/18/2024 15:22:45 01/20/2024 12:22:08 Screening for malignant neoplasm of colon 562161414 Z12.11 old referral . Benign ess ential hypertension 6551729 I10 Uncontroll ed History of rectal bleeding 8747739934 0158606 Z87.19 Benign pro static hyperplasia 169028974 N40.1 History of atrial fibrillation 946002125 Z86.79 Hx. of AFIB, on low dose AC which was previously on hold due to LGIBGI & Cardiology as referred Medication declined 4061 70784 Z53.20 Medication monitoring 39 9373360 Z51.81 Screening for malignant neoplasm of prostate 975997453 Z12.5 [id number] Farzana Khan MD [facility] (Adult Med) [address] [place] [phone] 03/06/2024 14:27:12 03/07/2024 12:35:21 Benign essential hypertension 4624629 I10 Uncontroll ed due to poor compliance History of atrial fibrillation 730577047 Z86.79 Continue Eliquis OV 01/18/2024H x. of AFIB, on low dose AC which was previously on hold due to LGIBGI & Cardiology as referred Benign pro static hyperplasia 575813731 N40.1 Leukocytosis 719271530 D 72.367 [id number] Farzana Khan MD [facility] (Adult Med) [address] [place] [id number] 04/18/2024 15:05:53 04/23/2024 11:23:22 Benign essential hypertension 8076241 I10 Continue the current regimen Benign pro static hyperplasia [id number] N40.1 History of atrial fibrillation [id number] Z86.79 Continue Eliquis OV 01/18/2024H x. of AFIB, on low dose AC which was previously on hold due to [facility] Cardiology as referred Screening for malignant neoplasm of colon [id number] Z12.11 He cannot get the old kit which is at his old address. Cellulitis of lower limb [id number] L03.119 Take Doxycyclin e as prescribed [id number] MD Celso Grady (Adult Med) [address] [place] [address] 0 05/21/2024 14:25:44 05/22/2024 12:53:26 Benign essential hypertension 7026140 I10 Restart/Co ntinue the current regimen Benign pro static hyperplasia 182798352 N40.1 History of atrial fibrillation 062804453 Z86.79 Restart/Co ntinue Eliquis [id number] MD Celso Grady (Adult Med) [address] [place] [phone] 0 07/03/2024 11:07:58 07/04/2024 10:34:45 Benign essential hypertension 1708474 I10 Restart/Co ntinue the current regimen Administra tion of influenza vaccine 15812003 Z23 History of atrial fibrillation 230870590 Z86.79 Restart/Co ntinue Eliquis Benign pro static hyperplasia 389587135 N40.1 [id number] MD Celso Grady (Adult Med) [address] [place] [address] [phone] 0 08/15/2024 10:17:10 08/21/2024 12:05:48 Benign essential hypertension 1189105 I10 Uncontroll ed due to non compliance Restart Metoprolol .Continue Lisinopril OV 4R estart/Con tinue the current regimen History of atrial fibrillation 803296038 Z86.79 Restart Eliquis OV 4R estart/Con tinue Eliquis Benign pro static hyperplasia 585030024 N40.1 Restart Tamsulosin Noncomplia nce with medication regimen 733781837 Z91.453 [id number] MD Celso Grady (Adult Med) [address] [place] [address] [phone] 09/05/2024 13:50:36 09/07/2024 08:47:22 Benign essential hypertension 3060085 I10 Restart Metoprolol Continue Lisinopril OV 08/15/2024 Uncontroll ed due to non compliance Restart Metoprolol .Continue Lisinopril OV 4R estart/Con tinue the current regimen History of atrial fibrillation 789704074 Z86.79 Continue Eliquis OV 08/15/2024 Restart Eliquis OV 07/03/2024 estart/Con tinue Eliquis Benign pro static hyperplasia 128930951 N40.1 Continue Tamsulosin Noncomplia nce with medication regimen 841659026 Z91.148 I believe the fact that is unhoused may be contributi ng to his poor compliance [id number] Farzana Khan MD [facility] (Adult Med) [address] [place] [phone] 0 02/25/2025 15:55:14 02/26/2025 12:18:04 Benign essential hypertension 0408518 I10 Restart Metoprolol and Lisinopril OV 09/05/2024 Restart Metoprolol Continue Lisinopril OV 08/15/2024 Uncontroll ed due to non compliance Restart Metoprolol .Continue Lisinopril OV 07/03/2024 estart/Con tinue the current regimen History of atrial fibrillation 606515008 Z86.79 Restart Eliquis OV 09/05/2024 Continue Eliquis OV 08/15/2024 Restart Eliquis OV 4R estart/Con tinue Eliquis Benign pro static hyperplasia 756204211 N40.1 Continue Tamsulosin Prostate s pecific antigen measurement 87211579 Z12.5 764642 Leukocytosis 922735664 D 72.829 035334 Hyperglycemia 54483102 R 73.9 97843 Health Concerns Section Related Observation LastModified by Organization Detai ls LastModified Time None Recorded Concern Status LastModified by Organization Details LastModified Time None Recorded Advance Directives Directive None Recorded Payers Insurance Date Sequence Insurance Name Policy Number Policy Najera Covered Member ID Najera Member ID Guarantor Name 05/08/2025 1 [facility] - DOS PRIOR TO 2025 (MEDICAID REPLACEMENT - HMO) [id number] Prashant Raphael [id number] Prashant Raphael 09/05/2024 1 [facility] Prashant Raphael [id number] Prashant Raphael 09/05/2024 1 [facility] (MEDICAID HMO) [id number] Prashant Raphael [id number] Prashant Raphael Notes Date Note Type Note Provider Name and Address Organization Details Recorded Time 05/21/2024 text/html Hypertension F/UReported by PatientHPIFor associated symptoms, patient reportsno dizziness,no lightheadedness,no chest pain,no shortness of breath,no palpitations,no edema, andno calf pain with exertion. For lifestyle, patient reportsregular exerciseandlimiting/ avoiding salt. For medications, patient reportstaking medications as directedandno side effects from medication.ROS as noted in the HPI AppointmentAll they got for me is my high blood pressure medicine, I take it twice a day He apparently has been unable to get all of his medications from his pharmacy, he is unable to give me an explanation. Farzana Khan MD Attn: [address] [facility], [place], [address], [facility] 05/21/2024 14:56:14 07/03/2024 text/html Hypertension F/UReported by PatientHPIFor medications, patient reportsnot taking medications as directedbut reportsno side effects from medication. For associated symptoms, patient reportsno dizziness,no lightheadedness,no chest pain,no shortness of breath,no palpitations,no edema, andno calf pain with exertion. For lifestyle, patient reportsregular exerciseandlimiting/ avoiding salt.ROS as noted in the HPI I just haven't been there , I didn't know I had refills Mr Smalls only has his Lisinopril, he now says that he has not been back to his pharmacy for his refills. Farzana Khan MD Attn: [address] [facility], [place], [address], [facility] 07/03/2024 14:05:59 08/15/2024 text/html Hypertension F/UReported by PatientHPIFor medications, patient reportsnot taking medications as directedbut reportsno side effects from medication. For associated symptoms, patient reportsno dizziness,no lightheadedness,no chest pain,no shortness of breath,no palpitations,no edema, andno calf pain with exertion. For lifestyle, patient reportsregular exerciseandlimiting/ avoiding salt.ROS as noted in the HPI I ain't got them yetPhysical Mr Smalls returns,he really cannot explain why he only has Lisinopril and none of his other medications. He admits that he does not have a personal phone and that they medicines may be ready at the pharmacy. Farzana Khan MD Attn: [address] [place], [address], [facility] 08/15/2024 11:34:11 09/05/2024 text/html Hypertension F/UReported by PatientHPIFor medications, patient reportsnot taking medications as directedbut reportsno side effects from medication. For associated symptoms, patient reportsno dizziness,no lightheadedness,no chest pain,no shortness of breath,no palpitations,no edema, andno calf pain with exertion. For lifestyle, patient reportsregular exerciseandlimiting/ avoiding salt.ROS as noted in the HPI They didn't have it Compliant with his Lisinopril, Tamsulosin and Eliquis. Farzana Khan MD Attn: Accounting[address] [place], [address], [facility] 09/05/2024 14:48:05 02/25/2025 text/html Hypertension F/UReported by PatientHPIFor medications, patient reportsnot taking medications as directedbut reportsno side effects from medication. For associated symptoms, patient reportsno dizziness,no lightheadedness,no chest pain,no shortness of breath,no palpitations,no edema, andno calf pain with exertion. For lifestyle, patient reportsregular exerciseandlimiting/ avoiding salt.ROS as noted in the HPI I ain't got nothing, I ain't got nothing in two weeks Farzana Khan MD Attn: Accounting[address] [facility], [place], [address], [facility] 02/25/2025 18:30:27
[2025-07-23 16:28] VITALS: BP 162/91; PULSE 67; RESP 16; O2SAT 99
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
--- NOTE | 2025-07-23 16:44 | ECG_ITS ---
Test Date: 2025-07-23 16:59:59 Measurements Intervals [place] Rate: 63 P: 84 MN: 185 QRS: 68 QRSD: 96 T: 69 QT: 438 QTc: 452 Interpretive Statements SINUS RHYTHM MINIMAL VOLTAGE CRITERIA FOR LVH, CONSIDER NORMAL VARIANT [MEETS CRITERIA IN ONE OF: R(aVL), S(V1), R(V5), R(V5/V6)+S(V1)] No previous ECG available for comparison Electronically Signed On 07-23-2025 19:36:15 CDT by Sindhu Zuniga M.D.
[2025-07-23 17:23] VITALS: BP 169/89; PULSE 71; RESP 16; O2SAT 99
== END 2025-07-23 17:29 | disposition home or self-care (01) ==
PROVIDERS: Emergency Provider Emergency Medicine
DX: S20.219A Contusion of unspecified front wall of thorax, initial encounter (principal); W19.XXXA Unspecified fall, initial encounter
CPT/HCPCS: 71046; 93005; 99283